=== PATIENT | female | born 1975 | race African-American/Black ===

== ENCOUNTER 2019-10-13 09:14 | Emergency (ER) | payer MEDICAID ==
[~2019-10-13] VITALS: Ht 162.6 cm; Wt 84.0 kg
[2019-10-13] MEDS ORDERED: TRAMADOL 50MG TABLET PO ONE (10:45)
[2019-10-13] MEDS ORDERED: IBUPROFEN 800MG TABLET PO ONE (10:45)
[2019-10-13 12:35] VITALS: BP 114/72
== END 2019-10-13 12:38 | disposition home or self-care (01) ==
LOC: ER 09:14
DX: M54.41 Lumbago with sciatica, right side (principal)
CPT/HCPCS: 81025; 99283